=== PATIENT | female | born 1970 | race Caucasian/White ===

== ENCOUNTER 2021-01-24 20:47 | Inpatient (IN) | payer OTHER ==
[~2021-01-24] VITALS: Ht 180.3 cm; Wt 135.6 kg
[~2021-01-24 20:47] MED LIST: BACTRIM DS TAB1 EACH PO; CLEOCIN HCL300 MG PO; TYLENOL W/CODEIN1 EA PO
[2021-01-25 00:29] LABS: BUN/CREATININE RATIO 16 (0-10)
[2021-01-25 00:44] LABS: RED BLOOD COUNT 4.56 M/UL (4.00-5.10); WHITE BLOOD COUNT 6.7 K/UL (4.5-11.0)
[2021-01-25 06:01] LABS: RED BLOOD COUNT 4.14 M/UL (4.00-5.10)
[2021-01-25 06:18] LABS: BUN/CREATININE RATIO 19 (0-10)
[2021-01-25] MEDS ORDERED: GABAPENTIN800 MG PO (12:58)
[2021-01-25] MEDS ORDERED: METFORMIN HCL1000 MG PO (12:59)
[2021-01-25] MEDS ORDERED: WARFARIN SODIUM4 MG PO (12:59)
[2021-01-25] MEDS ORDERED: ACTOS30 MG PO (13:00)
[2021-01-25] MEDS ORDERED: LEVOTHYROXINE25 MCG PO (13:00)
[2021-01-25] MEDS ORDERED: BYDUREON 2 MG INJ (13:01)
[2021-01-25] MEDS ORDERED: INSULIN LI100 UNIT/2 SQ (13:02)
[2021-01-25] MEDS ORDERED: SEROQUEL300 MG PO (13:03)
[2021-01-26] MEDS ORDERED: FUROSEMIDE40 MG PO (00:37)
[2021-01-26] MEDS ORDERED: LANTUS100 UNIT/1 SQ (00:38)
[2021-01-26] MEDS ORDERED: NYSTATIN-TRIAMC15 GM TP (00:39)
[2021-01-26] MEDS ORDERED: NYSTATIN1000000 UN MC (00:41)
[2021-01-26] MEDS ORDERED: TIZANIDINE HCL6 MG PO (00:42)
[2021-01-26] MEDS ORDERED: AMITRIPTYLINE H50 MG PO (00:43)
[2021-01-26 05:40] LABS: RED BLOOD COUNT 4.26 M/UL (4.00-5.10); WHITE BLOOD COUNT 5.1 K/UL (4.5-11.0)
[2021-01-26 06:22] LABS: BUN/CREATININE RATIO 19 (0-10)
[2021-01-27 05:57] LABS: HEMOGLOBIN 11.8 gm/dl (12.3-15.3); RED BLOOD COUNT 4.03 M/UL (4.00-5.10); WHITE BLOOD COUNT 4.5 K/UL (4.5-11.0)
[2021-01-27 07:07] LABS: BUN/CREATININE RATIO 22 (0-10)
[2021-01-28 09:32] LABS: HEMOGLOBIN 11.6 gm/dl (12.3-15.3)
[2021-01-28 09:48] LABS: WHITE BLOOD COUNT 6.6 K/UL (4.5-11.0)
[2021-01-28 10:04] LABS: BUN/CREATININE RATIO 24 (0-10)
[2021-01-29 05:45] LABS: HEMOGLOBIN 11.7 gm/dl (12.3-15.3); RED BLOOD COUNT 3.99 M/UL (4.00-5.10); WHITE BLOOD COUNT 6.4 K/UL (4.5-11.0)
[2021-01-29 06:19] LABS: BUN/CREATININE RATIO 25 (0-10)
[2021-01-29] MEDS ORDERED: KLOR-CON M2020 MEQ PO (13:47)
[2021-01-29] MEDS ORDERED: BACTRIM DS TAB1 EACH PO (13:47)
--- NOTE | 2021-01-29 14:20 | NUR ---
RN PERFORMED WOUND CARE ON PATIENT'S RIGHT HEEL AND DISCUSSED WITH PATIENT HOW SHE FELT ABOUT PERFORMING IT ON HERSELF AT HOME. PATIENT STATED SHE COULD PERFORM WOUND CARE INDEPENDENTLY AND VERBALIZED THAT SHE HAD A DAUGHTER THAT COULD HELP WELL. RN SENT PATIENT WITH 4x4s, LEFTOVER BETADINE GEL, GAUZE WRAP, AND JOSÉ MIGUEL WRAP TO PERFORM WOUND CARE. NO S/SX OF DISTRESS AT PRESENT.
== END 2021-01-29 16:20 | disposition home or self-care (01) | DRG 264 ==
LOC: ER1 20:47 → CDU 01-25 03:54 → MED SURG 4 01-25 17:55
PROVIDERS: Internal Medicine; Physician Assistant Medical; Podiatrist Foot & Ankle Surgery; ADMIT Internal Medicine
PROC: 0JBR0ZZ Excision of Left Foot Subcutaneous Tissue and Fascia, Open Approach (ICD-10-PCS; 2021-01-27)
PROC: 0JBQ0ZZ Excision of Right Foot Subcutaneous Tissue and Fascia, Open Approach (ICD-10-PCS; principal; 2021-01-27 11:38)
DX: E11.52 Type 2 diabetes mellitus with diabetic peripheral angiopathy with gangrene (principal); E87.1 Hypo-osmolality and hyponatremia; N30.00 Acute cystitis without hematuria; Z20.822 Contact with and (suspected) exposure to COVID-19; D62 Acute posthemorrhagic anemia; E11.621 Type 2 diabetes mellitus with foot ulcer; L89.612 Pressure ulcer of right heel, stage 2; B96.20 Unspecified Escherichia coli [E. coli] as the cause of diseases classified elsewhere; B95.61 Methicillin susceptible Staphylococcus aureus infection as the cause of diseases classified elsewhere; G40.909 Epilepsy, unspecified, not intractable, without status epilepticus; E11.40 Type 2 diabetes mellitus with diabetic neuropathy, unspecified; E78.5 Hyperlipidemia, unspecified; E11.65 Type 2 diabetes mellitus with hyperglycemia; F17.210 Nicotine dependence, cigarettes, uncomplicated; E03.9 Hypothyroidism, unspecified; Z86.718 Personal history of other venous thrombosis and embolism; Z79.01 Long term (current) use of anticoagulants; Z86.711 Personal history of pulmonary embolism; Z79.4 Long term (current) use of insulin; Z88.1 Allergy status to other antibiotic agents; Z88.0 Allergy status to penicillin; Z87.01 Personal history of pneumonia (recurrent); Z87.81 Personal history of (healed) traumatic fracture; Z90.13 Acquired absence of bilateral breasts and nipples; Z90.710 Acquired absence of both cervix and uterus; Z88.5 Allergy status to narcotic agent
CPT/HCPCS: 36415; 73630; 73718; 80048; 80053; 80202; 81001; 82009; 82962; 83540; 83550; 83605; 83735; 83880; 84100; 85025; 85027; 85610; 85652; 86140; 87040; 87070; 87077; 87086; 87186; 87205; 93922; 93925; 96365; 96375; 96376; 99285; G0378; J0692; J1100; J2001; J2250; J2270; J2405; J2704; J2765; J2795; J3010; J3370; J7030; J7070; J7120; U0002

== ENCOUNTER 2021-08-21 20:38 | Emergency (ER) | payer OTHER ==
[~2021-08-21 20:38] MED LIST changes: +ACTOS30 MG PO; +AMITRIPTYLINE H50 MG PO; +BYDUREON 2 MG INJ; +FUROSEMIDE40 MG PO; +GABAPENTIN800 MG PO; +INSULIN LI100 UNIT/2 SQ; +KLOR-CON M2020 MEQ PO; +LANTUS100 UNIT/1 SQ; +LEVOTHYROXINE25 MCG PO; +METFORMIN HCL1000 MG PO; +NYSTATIN-TRIAMC15 GM TP; +NYSTATIN1000000 UN MC; +SEROQUEL300 MG PO; +TIZANIDINE HCL6 MG PO; +WARFARIN SODIUM4 MG PO
== END 2021-08-21 22:10 | disposition home or self-care (01) ==
LOC: ER1 20:38
DX: S93.491A Sprain of other ligament of right ankle, initial encounter (principal); E11.621 Type 2 diabetes mellitus with foot ulcer; L97.419 Non-pressure chronic ulcer of right heel and midfoot with unspecified severity; X50.9XXA Other and unspecified overexertion or strenuous movements or postures, initial encounter; Y92.009 Unspecified place in unspecified non-institutional (private) residence as the place of occurrence of the external cause
CPT/HCPCS: 73610; 99283